=== PATIENT | female | born 1995 | race African-American/Black ===

== ENCOUNTER 2016-12-24 15:53 | Emergency (ER) | payer OTHER ==
[2016-12-24] MEDS ORDERED: LIDOCAINE 2% VISCOUS SOLN 20 ML UDCUP PO ONE (16:30)
[2016-12-24] MEDS ORDERED: ONDANSETRON 4 MG TAB.RAPDIS PO ONE (16:30)
--- NOTE | 2016-12-24 16:32 | ER Document Report ---
HPI - HPI Patient complains to provider of: mouth pain Onset: Other - 4 days Onset/Duration: Persistent Quality of pain: Achy Pain Level: 5 Context: Pt complains of a wisdom tooth that is coming in. Patient states that she woke up 4 days ago and she had bit into her left buccal mucosa. Patient complains of left cheek pain and swelling. Patient states she has had nausea and vomiting 2 episodes today. No fever. Associated Symptoms: Nausea, Vomiting, Other - mouth pain. denies: Fever Exacerbated by: Denies Relieved by: Denies Similar symptoms previously: No Recently seen / treated by doctor: Yes - ROS ROS below otherwise negative: Yes Systems Reviewed and Negative: Yes All other systems reviewed and negative - CONSTITUTIONAL Constitutional: DENIES: Fever, Chills - EENT Notes: dental pain, buccal mucosa injury - RESPIRATORY Respiratory: DENIES: Coughing - GASTROINTESTINAL Gastrointestinal: REPORTS: Nausea, Patient vomiting. DENIES: Abdominal Pain, Diarrhea - MUSCULOSKELETAL Musculoskeletal: DENIES: Extremity pain, Back Pain, Neck Pain - DERM Skin Color: Normal Skin Problems: None Past Medical History - General Information source: Patient - Social History Smoking Status: Current Every Day Smoker Chew tobacco use (# tins/day): No Frequency of alcohol use: Social Drug Abuse: None Occupation: none Lives with: Family Family History: Reviewed & Not Pertinent Endocrine Medical History: Reports: Hx Hypothyroidism Renal/ Medical History: Denies: Hx Peritoneal Dialysis Past Surgical History: Reports: Hx Vascular Surgery Vertical Provider Document - CONSTITUTIONAL Agree With Documented VS: Yes Exam Limitations: No Limitations General Appearance: WD/WN, No Apparent Distress - INFECTION CONTROL TRAVEL OUTSIDE OF THE [place] IN LAST 30 DAYS: No - HEENT HEENT: Atraumatic, Normocephalic Mouth Diagram: 1 - impacted 3rd molar, mild gingival inflammation 2 - pw to buccal mucosa Notes: subtle swelling to left cheek - NECK Neck: Normal Inspection, Supple. negative: Lymphadenopathy-Left, Lymphadenopathy-Right - RESPIRATORY Respiratory: Breath Sounds Normal, No Respiratory Distress, Chest Non-Tender O2 Sat by Pulse Oximetry: 99 - CARDIOVASCULAR Cardiovascular: Regular Rate, Regular Rhythm, No Murmur - GI/ABDOMEN Gastrointestinal: Abdomen Soft, Abdomen Non-Tender, No Organomegaly - BACK Back: Normal Inspection. negative: CVA Tenderness-Right, CVA Tenderness-Left - MUSCULOSKELETAL/EXTREMETIES Musculoskeletal/Extremeties: MAEW - NEURO Level of Consciousness: Awake, Alert, Appropriate Motor/Sensory: No Motor Deficit - DERM Integumentary: Warm, Dry, No Rash Course - Re-evaluation Re-evalutation: 12/24/16 17:56 Patient tolerating oral fluids without vomiting. Discussed worsening signs or symptoms that patient should return immediately for. Patient verbalized understanding and agrees with plan of care. - Vital Signs Vital signs: Temp Pulse Resp BP Pulse Ox 98.6 F 74 12 129/76 H 99 12/24/16 15:56 12/24/16 15:56 12/24/16 15:56 12/24/16 15:56 12/24/16 15:56 Discharge - Discharge Clinical Impression: Toothache Open mouth wound Qualifiers: Encounter type: initial encounter Qualified Code(s): S01.502A - Unspecified open wound of oral cavity, initial encounter Nausea & vomiting Qualifiers: Vomiting type: unspecified Vomiting Intractability: non-intractable Qualified Code(s): R11.2 - Nausea with vomiting, unspecified Condition: Stable Disposition: HOME, SELF-CARE Instructions: Clindamycin ([facility]), Antinausea Medication ([facility]), Vomiting ([facility]), Toothache ([facility]), Oral Narcotic Medication ([facility]) Additional Instructions: Return immediately for any new or worsening symptoms Followup with your primary care provider, call tomorrow to make a followup appointment Follow-up with a dental care provider for recheck, call tomorrow for an appointment He may use topical [id number] medication to help with your mouth sore treatment such as Anbesol Prescriptions: Acetaminophen with Codeine [Acetaminophen-Cod #3 Tablet] 1 each PO Q6 PRN #15 tablet PRN Reason: Clindamycin HCl [Cleocin 300 mg Capsule] 300 mg PO TID #21 capsule Ondansetron HCl [Zofran 4 mg Tablet] 1 - 2 tab PO Q6 PRN #15 tablet PRN Reason: Referrals: [facility] [Provider Group] - Follow up as needed [facility] [Provider Group] - Follow up as needed
[2016-12-24 18:32] VITALS: BP 78/44
== END 2016-12-24 18:30 | disposition home or self-care (01) ==
LOC: ER 15:53
DX: S01.502A Unspecified open wound of oral cavity, initial encounter (principal); K08.89 Other specified disorders of teeth and supporting structures; R51 Headache; R22.0 Localized swelling, mass and lump, head; R11.2 Nausea with vomiting, unspecified; F17.200 Nicotine dependence, unspecified, uncomplicated; X58.XXXA Exposure to other specified factors, initial encounter
CPT/HCPCS: 99283; S0119; J3490